=== PATIENT | female | born 1975 | race Caucasian/White ===

== ENCOUNTER 2017-01-05 05:47 | Outpatient (CLI) | payer SELFPAY ==
[~2017-01-05] VITALS: Ht 170.2 cm; Wt 83.9 kg
[2017-01-05] MEDS ORDERED: ESCI10TA PO ×2 (13:34)
[2017-01-05] MEDS ORDERED: CETI10TA17 PO ×2 (13:34)
[2017-01-05] MEDS ORDERED: BUDE8.43 NS ×2 (13:34)
[2017-01-05] MEDS ORDERED: BUDE10.22 IH ×2 (13:34)
[2017-01-05] MEDS ORDERED: DICL50TA6 PO ×2 (13:34)
[2017-01-05] MEDS ORDERED: CLON0.2T PO ×2 (13:34)
[2017-01-05] MEDS ORDERED: RANI-515 PO ×2 (13:34)
== END 2017-01-05 13:39 ==
LOC: PREOP 05:47
PROVIDERS: ATTEND Surgery
DX: Z01.818 Encounter for other preprocedural examination (principal); R19.5 Other fecal abnormalities; K21.9 Gastro-esophageal reflux disease without esophagitis; R11.2 Nausea with vomiting, unspecified

== ENCOUNTER 2017-01-09 09:26 | Day surgery (SDC) | payer OTHER ==
[~2017-01-09] VITALS: Ht 170.2 cm; Wt 83.9 kg
[~2017-01-09 09:26] MED LIST: BUDE10.22 IH; BUDE8.43 NS; CETI10TA17 PO; CLON0.2T PO; DICL50TA6 PO; ESCI10TA PO; RANI-515 PO
[2017-01-09] MEDS ORDERED: LACTATED RINGERS 1,000 ML IV STA (09:37)
[2017-01-09] MEDS ORDERED: LACTATED RINGERS 1,000 ML IV ONE (09:39)
[2017-01-09 09:40] VITALS: BP 120/82
[2017-01-09] MEDS ORDERED: MIDAZOLAM 2 MG/2 ML (VERSED) VIAL ONE (10:11)
[2017-01-09] MEDS ORDERED: proPOfol 200 MG/20 ML (DIPRIVAN) VIAL IV ONE (10:11)
--- NOTE | 2017-01-09 13:05 | Progress Note-Pre Operative ---
Pre-Operative Progress Note H&P Reviewed The H&P was reviewed, patient examined and no changes noted. Date Seen by Provider: Jan 09, 2017 Time Seen by Provider: 13:05 Date H&P Reviewed: Jan 09, 2017 Time H&P Reviewed: 13:05 Pre-Operative Diagnosis: n/v gerd, change in bowel habits LON GARCIA DO Jan 09, 2017 1:05 pm
[2017-01-09] MEDS ORDERED: HURRICAINE EXT TUBE (BENZOCAINE) ONE (13:08)
[2017-01-09] MEDS ORDERED: HURRICAINE EXT TUBE (BENZOCAINE) XX ONE (13:30)
[2017-01-09] MEDS ORDERED: PANT40TA2 PO ×2 (13:36)
--- NOTE | 2017-01-09 13:38 | Discharge Inst-Simple/Standard ---
Discharge Inst-Standard Discharge Medications New, Converted or Re-Newed RX: RX on Chart Patient Instructions/Follow Up Plan of Care/Instructions/FU: Follow up with Dr. Hubbard in 3 weeks take medication as directed. Activity as Tolerated: Yes Discharge Diet: No Restrictions GALILEO CARMONA APRN Jan 09, 2017 13:38
--- NOTE | 2017-01-09 13:46 | Progress Note-Post Operative ---
Post-Operative Progess Note Surgeon (s)/Hardwood Floor Sander (s) Surgeon LON GARCIA DO Hardwood Floor Sander: na Pre-Operative Diagnosis n/v gerd, change in bowel habits Post-Operative Diagnosis duodenitis, gastritis, recurrent hiatal hernia Procedure & Operative Findings Date of Procedure 01/09/17 Procedure Performed/Findings egd c biopsy, colonoscopy Anesthesia Type per airplane designer Estimated Blood Loss Estimated blood loss (mL): none Specimens/Packing Specimens Removed antrum LON GARCIA DO Jan 09, 2017 1:45 pm
[2017-01-09 13:55] VITALS: BP 106/69
[2017-01-09 14:15] VITALS: BP 119/85
--- NOTE | 2017-01-10 03:31 | OPERATIVE REPORT ---
DATE OF SERVICE: PREOPERATIVE DIAGNOSES: Nausea, vomiting, GERD, change in bowel habits. POSTOPERATIVE DIAGNOSES: Duodenitis, gastritis, recurrent hiatal hernia. PROCEDURE: EGD with biopsy and colonoscopy. SURGEON: Lon Hubbard DO ANESTHESIA: Per ANTITANK ASSAULT GUNNER. ESTIMATED BLOOD LOSS: None. COMPLICATIONS: None. SPECIMENS: Antrum. INDICATIONS: The patient is a 41-year-old female who has been having nausea, vomiting and worsening reflux symptoms. She has also had change in bowels and was recommended to have EGD and colonoscopy. She understands risks and benefits of procedure and wishes to proceed with procedure. Consent was signed and in the chart. PROCEDURE: The patient was taken to the endoscopy suite, placed in left lateral recumbent position. Timeout was performed. Scope was inserted in mouth, down the esophagus, stomach and into the duodenum without difficulty. There were some erythematous changes within the duodenum consistent with duodenitis. The scope was slowly retracted back into the stomach, which was further insufflated noting some erythematous changes. Biopsy of the antrum was obtained. There were no polyps, masses or ulcerations. The scope was then retroflexed, noting the appearance with either loosening of the wrap or a one side of the wrap causing allowing recurrence of the hiatal hernia. There were no polyps, masses or ulcerations. Scope was returned to its normal position and slowly withdrawn back into the distal esophagus, which had no erythematous changes. No polyps, masses or ulcerations at the GE junction. Scope was then slowly retracted back and there was a very tiny normal appearing polyp within the esophagus more proximally. Scope was then continuously retracted back noting no other pathology. Digital rectal exam was performed. There were no palpable polyps, masses or ulcerations. Scope was inserted in the rectum and advanced all the way to the cecum with minimal difficulty. Prep was adequate. Scope was then slowly retracted. There were no polyps, mass or ulcerations in the cecum, ascending, transverse, descending and sigmoid colon. The scope was continued to retract back in the rectum where it was also retroflexed noting no other pathology. Scope was returned to its normal position, slowly withdrawn until completely removed. The patient tolerated procedure well without any complications. She was taken to the recovery room in stable condition. RECOMMENDATIONS: The patient remained tubing will be switched to Protonix 40 mg daily. We will see how she does in approximately 3 weeks. The patient will need repeat colonoscopy in 10 years unless family history of colon cancer which would then be 5 years. If she has any problems prior to that, she should be reevaluated at that time. Job ID: [id number] DocumentID: [id number] Dictated Date: 01/09/2017 13:49:42 Adobe Developer Date: 01/10/2017 02:59:01 Dictated By: LON HUBBARD DO
--- OUTSIDE RECORDS SUMMARY | 2017-01-11 14:34 | XMS REPORT ---
Author Author BILLY KEITH [facility] eClinicalWorks Address Unknown Phone Unavailable Care Team Providers Care Warehouse Logistics Coordinator Name Role Phone BILLY KEITH CP Unavailable Allergies, Adverse Reactions, Alerts Substance Reaction Event Type N.K.D.A. Info Not Available Non Drug Allergy Problems Problem Type Condition Code Onset Dates Condition Status Assessment Acute right-sided low back pain without sciatica M54.5 Active Assessment Anxiety, generalized F41.1 Active Assessment Mild episode of recurrent major depressive disorder F33.0 Active Problem Mild episode of recurrent major depressive disorder F33.0 Active Problem Eczema, unspecified type L30.9 Active Problem Anxiety, generalized F41.1 Active Problem Chronic airway obstruction, not elsewhere classified 496 Active Assessment Eczema, unspecified type L30.9 Active Problem Family history of diabetes mellitus V18.0 Active Problem Personal history of tobacco use, presenting hazards to health V15.82 Active Medications Medication Code System Code Instructions Start Date End Date Status Dosage Cetirizine HCl [facility] 88643431046 10 MG TAKE ONE TABLET BY MOUTH ONCE DAILY Zyrtec Allergy [facility] [address]-46 10 MG Orally Once a day 1 tablet as needed Methotrexate Sodium NDC 0 2.5 MG Orally once weekly Apr 18, 2016 1 tablet Clonidine HCl [facility] [address]-35 0.2 MG Orally twice a day Apr 12, 2016 1 tablet Ibuprofen [facility] [address]-03 800 MG Orally Three times a day May 29, 2016 Jun 18, 2016 1 tablet Lexapro [facility] [address]-47 10 mg Orally Once a day May 29, 2016 1 tablet Symbicort [facility] [address]-87 80-4.5 mcg/actuation May 19, 2014 2 puffs by Inhalation route 2 times per day Ranitidine & Diet Manage Prod NDC 0 150 MG Orally once a day 1 tablet Tylenol Cold [facility] [address]-94 30-2-15-325 MG Orally every 6 hrs 2 tablets as needed Procedures Procedure Coding System Code Date X-RAY EXAM OF LOWER SPINE CPT-4 93281 May 29, 2016 Office Visit, Est Pt., Level 3 CPT-4 76670 May 29, 2016 X-RAY EXAM HIP UNI 2-3 VIEWS CPT-4 25576 May 29, 2016 Vital Signs Date/Time: May 29, 2016 Cardiac Monitoring Heart Rate 74 bpm Weight 184.1 lbs Height 66 in BMI 29.71 Index Blood Pressure Diastolic 72 mmHg Blood Pressure Systolic 108 mmHg Results Name Result Date Reference Range Unit Abnormality Flag Xray : Spine, Lumbar 2-3 views (IN HOUSE) Xray : Hip, Right 2 views (IN HOUSE) Summary Purpose eClinicalWorks Submission
--- OUTSIDE RECORDS SUMMARY | 2017-01-11 14:34 | XMS REPORT ---
Author Author BILLY KEITH [facility] eClinicalWorks Address Unknown Phone Unavailable Care Team Providers Care House Principal Name Role Phone BILLY KEITH CP Unavailable Allergies No Known Allergies Problems Problem Type Condition Code Onset Dates Condition Status Problem Mild episode of recurrent major depressive disorder F33.0 Active Problem Eczema, unspecified type L30.9 Active Problem Anxiety, generalized F41.1 Active Problem Chronic airway obstruction, not elsewhere classified 496 Active Problem Family history of diabetes mellitus V18.0 Active Problem Personal history of tobacco use, presenting hazards to health V15.82 Active Medications No Known Medications Results No Known Results Summary Purpose eClinicalWorks Submission
--- OUTSIDE RECORDS SUMMARY | 2017-01-11 14:34 | XMS REPORT ---
Author Author BILLY KEITH Organization e[employer] Address Unknown Phone Unavailable Care Team Providers Care Lactation Specialist Name Role Phone BILLY KEITH CP Unavailable [...] Instructions Start Date End Date Status Dosage Methotrexate Sodium NDC 0 2.5 MG Orally once weekly Apr 18, 2016 1 tablet Results No Known Results Summary Purpose eClinicalWorks Submission
--- OUTSIDE RECORDS SUMMARY | 2017-01-11 14:34 | XMS REPORT ---
Author BILLY Raymond Organization e[employer] Address Unknown Phone Unavailable Care Team Providers Care Fan Balancer Name Role Phone BILLY KEITH CP Unavailable Allergies, Adverse Reactions, Alerts Substance Reaction Event Type N.K.D.A. Info Not Available Non Drug Allergy Problems Problem Type Condition Code Onset Dates Condition Status Problem Personal history of tobacco use, presenting hazards to health V15.82 Active Problem Chronic airway obstruction, not elsewhere classified 496 Active Problem Family history of diabetes mellitus V18.0 Active Assessment Depression, unspecified depression type F32.9 Active Assessment Eczema L30.9 Active Assessment Hidradenitis L73.2 Active Medications Medication Code System Code Instructions Start Date End Date Status Dosage Zyrtec Allergy [facility] [address]-44 10 MG Orally Once a day 1 tablet as needed Combivent Respimat [facility] [address]-74 20-100 MCG/ACT Inhalation Four times a day 1 puff Ranitidine & Diet Manage Prod NDC 0 150 MG Orally once a day 1 [place] [address]-60 50 mcg/actuation October 16, 2014 inhale 1 spray in each nostril by INTRANASAL route 2 times per day Symbicort [facility] [address]-20 80-4.5 mcg/actuation May 19, 2014 2 puffs by Inhalation route 2 times per day Procedures Procedure Coding System Code Date Office Visit, Est Pt., Level 3 CPT-4 42125 Apr 11, 2016 Vital Signs Date/Time: Apr 11, 2016 Cardiac Monitoring Heart Rate 74 bpm Weight 184.2 lbs Height 66 in BMI 29.73 Index Blood Pressure Diastolic 82 mmHg Blood Pressure Systolic 122 mmHg Results No Known Results Summary Purpose eClinicalWorks Submission
--- OUTSIDE RECORDS SUMMARY | 2017-01-11 14:35 | XMS REPORT ---
Author Author LENY ASENCIO [facility] Address [address] [place] [address] Care Team Providers Care Cutting Pressman Name Role Phone LENY ASENCIO Unavailable PROBLEMS Type Condition ICD9-CM Code [id number] Code Onset Dates Condition Status SNOMED Code Problem Family history of diabetes mellitus V18.0 Active 659540016 Problem Personal history of tobacco use, presenting hazards to health V15.82 Active 7638994164038 Assessment Moderate single current episode of major depressive disorder F32.1 Mar, Active 72396780 Problem Chronic airway obstruction, not elsewhere classified 496 Active 54171764 Assessment Anxiety, generalized F41.1 Mar, Active 64250670 ALLERGIES Unknown Allergies SOCIAL HISTORY No smoking Hx information available PLAN OF CARE VITAL SIGNS MEDICATIONS Unknown Medications RESULTS No Results PROCEDURES Procedure Date Ordered Related Diagnosis Body Site Psych diagnostic evaluation, new patient Apr 12, 2016 IMMUNIZATIONS No Known Immunizations
--- OUTSIDE RECORDS SUMMARY | 2017-01-11 14:35 | XMS REPORT ---
Author Author LENY ASENCIO [facility] Address [address] [place] [address] Care Team Providers Care Collar Starcher Name Role Phone LENY ASENCIO Unavailable PROBLEMS Type Condition ICD9-CM Code NJN65-XV Code Onset Dates Condition Status SNOMED Code Problem Family history of diabetes mellitus V18.0 Active 557065277 Problem Personal history of tobacco use, presenting hazards to health V15.82 Active 3955104153210 Assessment Social phobia, generalized F40.11 Mar, Active 77547754 Assessment Recurrent major depressive disorder, in partial remission F33.41 Mar, Active 00320665 Problem Chronic airway obstruction, not elsewhere classified 496 Active 62598081 Assessment Generalized anxiety disorder F41.1 Mar, Active 67133075 ALLERGIES Unknown Allergies SOCIAL HISTORY No smoking Hx information available PLAN OF CARE VITAL SIGNS MEDICATIONS Unknown Medications RESULTS No Results PROCEDURES Procedure Date Ordered Related Diagnosis Body Site Psychotherapy, patient &/family, 30 minutes, established patient Apr 19, 2016 IMMUNIZATIONS No Known Immunizations
--- OUTSIDE RECORDS SUMMARY | 2017-01-11 14:35 | XMS REPORT ---
Author Author BILLY KEITH Organization [facility] Address [address] [place] [address] Care Team Providers Care Freight Clerk Name Role Phone BILLY KEITH Unavailable PROBLEMS Type Condition ICD9-CM Code [id number] Code Onset Dates Condition Status SNOMED Code Problem Eczema, unspecified type L30.9 Active 89544702 Problem Family history of diabetes mellitus V18.0 Active 085625326 Assessment Eczema, unspecified type L30.9 Mar, Active 66953162 Problem Personal history of tobacco use, presenting hazards to health V15.82 Active 7180772043720 Problem Chronic airway obstruction, not elsewhere classified 496 Active 05230979 ALLERGIES Unknown Allergies SOCIAL HISTORY No smoking Hx information available PLAN OF CARE VITAL SIGNS MEDICATIONS Medication Instructions Dosage Frequency Start Date End Date Duration Status Keflex 500 MG Orally 3 times a day 1 capsule 8h Mar, Apr, 10 day(s) Active Methotrexate Sodium 2.5 MG Orally once weekly 1 tablet Mar, 30 days Active Methotrexate Sodium 2.5 MG Orally 2 times a day 1 tablet 12h Mar, Apr, 03 days Active RESULTS No Results PROCEDURES No Known procedures IMMUNIZATIONS No Known Immunizations
--- OUTSIDE RECORDS SUMMARY | 2017-01-11 14:35 | XMS REPORT | Continuity of Care Document ---
Author Author [facility] Address Unknown Phone Unavailable Allergies Active Description Code Type Severity Reaction Onset Reported/Identified Relationship to Patient Clinical Status Yes No Known Allergies [id number] Drug Allergy Unknown N/A 12/15/2014 Yes tramadol [id number] Drug Allergy Unknown migraine 01/05/2017 Medications Problems Date Dx Coded Attending Type Code Diagnosis Diagnosed By 03/06/2008 MANNY MOSCOSO MD 296.90 MOOD DISORDER 03/06/2008 MANNY MOSCOSO MD 465.9 UPPER RESPIRATORY INFECTION 03/06/2008 MANNY MOSCOSO MD 477.9 RHINITIS ALLERGIC 03/06/2008 HART DO JAYCE K 296.90 MOOD DISORDER 03/06/2008 TANNER CAO JAYCE K 465.9 UPPER RESPIRATORY INFECTION 03/06/2008 HART DO JAYCE K 477.9 RHINITIS ALLERGIC 03/06/2008 SAGAR PR[employer]ODU[employer] ASSEMBLER, BILLY S 296.90 MOOD DISORDER 03/06/2008 SAGAR PR[employer] PRODU[employer] ASSEMBLER, BILLY S 465.9 UPPER RESPIRATORY INFECTION 03/06/2008 SAGAR PR[employer]ED PRODU[employer] ASSEMBLER, BILLY S 477.9 RHINITIS ALLERGIC 03/06/2008 SAGAR PRINTED PRODUCTS ASSEMBLER, BILLY S 296.90 MOOD DISORDER 03/06/2008 SAGAR PR[employer]ED PRODU[employer] ASSEMBLER, BILLY S 465.9 UPPER RESPIRATORY INFECTION 03/06/2008 SAGAR PRINTED PRODUCTS ASSEMBLER, BILLY S 477.9 RHINITIS ALLERGIC 03/06/2008 SAGAR PRINTED PRODUCTS ASSEMBLER, BILLY S 296.90 MOOD DISORDER 03/06/2008 SAGAR PRINTED PRODUCTS ASSEMBLER, BILLY S 465.9 UPPER RESPIRATORY INFECTION 03/06/2008 SAGAR PR[employer] PRODU[employer] ASSEMBLER, BILLY S 477.9 RHINITIS ALLERGIC 03/06/2008 HART DO JAYCE K 296.90 MOOD DISORDER 03/06/2008 HART DO JAYCE K 465.9 UPPER RESPIRATORY INFECTION 03/06/2008 HART DO JAYCE K 477.9 RHINITIS ALLERGIC 03/06/2008 SAGAR PR[employer]ODU[employer] ASSEMBLER, BILLY S 296.90 MOOD DISORDER 03/06/2008 SAGAR PR[employer]ED PRODU[employer] ASSEMBLER, BILLY S 465.9 UPPER RESPIRATORY INFECTION 03/06/2008 SAGAR YOUNGERN, BILLY S 477.9 RHINITIS ALLERGIC 03/06/2008 DHARA YOUNGERN, AMITA R 296.90 MOOD DISORDER 03/06/2008 DHARA YOUNGERN, AMITA R 465.9 UPPER RESPIRATORY INFECTION 03/06/2008 DHARA GUERRERO, AMITA R 477.9 RHINITIS ALLERGIC 03/06/2008 HERBERTH PEREIRA, ALI 296.90 MOOD DISORDER 03/06/2008 HERBERTH PEREIRA, ALI 465.9 UPPER RESPIRATORY INFECTION 03/06/2008 HERBERTH PEREIRA, ALI 477.9 RHINITIS ALLERGIC 03/10/2008 DANIS PEREIRA, MANNY M 595.0 CYSTITIS, ACUTE 03/10/2008 TANNER CAO JAYCE K 595.0 CYSTITIS, ACUTE 03/10/2008 SAGAR GUERRERO, BILLY S 595.0 CYSTITIS, ACUTE 03/10/2008 SAGAR GUERRERO, BILLY S 595.0 CYSTITIS, ACUTE 03/10/2008 SAGARSAMMY GUERRERO, BILLY S 595.0 CYSTITIS, ACUTE 03/10/2008 SARABJIT HART DOA K 595.0 CYSTITIS, ACUTE 03/10/2008 SAGAR GUERRERO, BILLY S 595.0 CYSTITIS, ACUTE 03/10/2008 SCARLETT JULES APRNRICIA R 595.0 CYSTITIS, ACUTE 03/10/2008 HERBERTH PEREIRA, ALI 595.0 CYSTITIS, ACUTE 04/06/2008 DANIS PEREIRA, MANNY Jackman V58.69 MEDICATION HIGH RISK 04/06/2008 TANNER CAO JAYCE K V58.69 MEDICATION HIGH RISK 04/06/2008 SAGAR GUERRERO BILLY S V58.69 MEDICATION HIGH RISK 04/06/2008 SAGAR GUERRERO BILLY S V58.69 MEDICATION HIGH RISK 04/06/2008 SAGAR GUERRERO BILLY S V58.69 MEDICATION HIGH RISK 04/06/2008 TANNER CAO JAYCE K V58.69 MEDICATION HIGH RISK 04/06/2008 SAGAR GUERRERO BILLY S V58.69 MEDICATION HIGH RISK 04/06/2008 SCARLETT JULES APRNRICIA R V58.69 MEDICATION HIGH RISK 04/06/2008 HERBERTH PEREIRA, ALI V58.69 MEDICATION HIGH RISK 04/07/2008 DANIS PEREIRA, MANNY Jackman 704.8 OTHER SPECIFIED DISEASES OF HAIR AND HAIR FOLLICLES 04/07/2008 DANIS PEREIRA, MANNY Jackman 709.9 DERMATITIS OTHER SKIN DISORDERS 04/07/2008 DANIS PEREIRA, MANNY Jackman 788.30 INCONTINENCE ENURESOS/URINARY 04/07/2008 SARABJIT HART DOA K 704.8 OTHER SPECIFIED DISEASES OF HAIR AND HAIR FOLLICLES 04/07/2008 SARABJIT HART DOA K 709.9 DERMATITIS OTHER SKIN DISORDERS 04/07/2008 SARABJIT HART DOA K 788.30 INCONTINENCE ENURESOS/URINARY 04/07/2008 BILLY KEITH APRN S 704.8 OTHER SPECIFIED DISEASES OF HAIR AND HAIR FOLLICLES 04/07/2008 LYDIA KEITH APRNA S 709.9 DERMATITIS OTHER SKIN DISORDERS 04/07/2008 LYDIA KEITH APRNA S 788.30 INCONTINENCE ENURESOS/URINARY 04/07/2008 ROX KEITH APRNNDA S 704.8 OTHER SPECIFIED DISEASES OF HAIR AND HAIR FOLLICLES 04/07/2008 ROX KEITH APRNNDA S 709.9 DERMATITIS OTHER SKIN DISORDERS 04/07/2008 ROX KEITH APRNNDA S 788.30 INCONTINENCE ENURESOS/URINARY 04/07/2008 ROX KEITH APRNNDA S 704.8 OTHER SPECIFIED DISEASES OF HAIR AND HAIR FOLLICLES 04/07/2008 LYDIA KEITH APRNA S 709.9 DERMATITIS OTHER SKIN DISORDERS 04/07/2008 ROX KEITH APRNNDA S 788.30 INCONTINENCE ENURESOS/URINARY 04/07/2008 SARABJIT HART DOA K 704.8 OTHER SPECIFIED DISEASES OF HAIR AND HAIR FOLLICLES 04/07/2008 SARABJIT HART DOA K 709.9 DERMATITIS OTHER SKIN DISORDERS 04/07/2008 SARABJIT HART DOA K 788.30 INCONTINENCE ENURESOS/URINARY 04/07/2008 ROX KEITH APRNNDA S 704.8 OTHER SPECIFIED DISEASES OF HAIR AND HAIR FOLLICLES 04/07/2008 LYDIA KEITH APRNA S 709.9 DERMATITIS OTHER SKIN DISORDERS 04/07/2008 SAGAR PR[employer] ASSEMBLER, BILLY S 788.30 INCONTINENCE ENURESOS/URINARY 04/07/2008 SURY JULES APRNIA R 704.8 OTHER SPECIFIED DISEASES OF HAIR AND HAIR FOLLICLES 04/07/2008 AMITA JULES APRN R 709.9 DERMATITIS OTHER SKIN DISORDERS 04/07/2008 SURY JULES APRNIA R 788.30 INCONTINENCE ENURESOS/URINARY 04/07/2008 RADHA KEVIN MD 704.8 OTHER SPECIFIED DISEASES OF HAIR AND HAIR FOLLICLES 04/07/2008 RADHA KEVIN MD 709.9 DERMATITIS OTHER SKIN DISORDERS 04/07/2008 RADHA KEVIN MD 788.30 INCONTINENCE ENURESOS/URINARY 08/05/2008 MANNY MOSCOSO MD 704.9 UNSPECIFIED DISEASE OF HAIR AND HAIR FOLLICLES 08/05/2008 MANNY MOSCOSO MD V25.41 SURVEILLANCE OF CONTRACEPTIVE PILL 08/05/2008 JAYCE HART DO K 704.9 UNSPECIFIED DISEASE OF HAIR AND HAIR FOLLICLES 08/05/2008 JAYCE HART DO K V25.41 SURVEILLANCE OF CONTRACEPTIVE PILL 08/05/2008 LYDIA KEITH APRNA S 704.9 UNSPECIFIED DISEASE OF HAIR AND HAIR FOLLICLES 08/05/2008 ROX KEITH APRNNDA S V25.41 SURVEILLANCE OF CONTRACEPTIVE PILL 08/05/2008 LYDIA KEITH APRNA S 704.9 UNSPECIFIED DISEASE OF HAIR AND HAIR FOLLICLES 08/05/2008 ROX KEITH APRNNDA S V25.41 SURVEILLANCE OF CONTRACEPTIVE PILL 08/05/2008 LYDIA KEITH APRNA S 704.9 UNSPECIFIED DISEASE OF HAIR AND HAIR FOLLICLES 08/05/2008 ROX KEITH APRNNDA S V25.41 SURVEILLANCE OF CONTRACEPTIVE PILL 08/05/2008 SARABJIT HART DOA K 704.9 UNSPECIFIED DISEASE OF HAIR AND HAIR FOLLICLES 08/05/2008 JAYCE HART DO K V25.41 SURVEILLANCE OF CONTRACEPTIVE PILL 08/05/2008 LYDIA KEITH APRNA S 704.9 UNSPECIFIED DISEASE OF HAIR AND HAIR FOLLICLES 08/05/2008 ROX KEITH APRNNDA S V25.41 SURVEILLANCE OF CONTRACEPTIVE PILL 08/05/2008 AMITA JULES APRN R 704.9 UNSPECIFIED DISEASE OF HAIR AND HAIR FOLLICLES 08/05/2008 DHARA YOUNGERN, AMITA R V25.41 SURVEILLANCE OF CONTRACEPTIVE PILL 08/05/2008 HERBERTH PEREIRA, RADHA 704.9 UNSPECIFIED DISEASE OF HAIR AND HAIR FOLLICLES 08/05/2008 HERBERTH PEREIRA, RADHA V25.41 SURVEILLANCE OF CONTRACEPTIVE PILL 09/16/2008 MANNY MOSCOSO MD 465.8 UPPER RESPIRATORY INFECTION MULTIPLE 09/16/2008 MANNY MOSCOSO MD M 724.3 SCIATICA 09/16/2008 MANNY MOSCOSO MD 786.2 cough 09/16/2008 HART DO, JAYCE K 465.8 UPPER RESPIRATORY INFECTION MULTIPLE 09/16/2008 HART DO, JAYCE K 724.3 SCIATICA 09/16/2008 HART DO, JAYCE K 786.2 cough 09/16/2008 SAGAR [employer] ASSEMBLER, BILLY S 465.8 UPPER RESPIRATORY INFECTION MULTIPLE 09/16/2008 SAGAR PR[employer] ASSEMBLER, BILLY S 724.3 SCIATICA 09/16/2008 SAGAR PR[employer]ED PR[employer]CTS ASSEMBLER, BILLY S 786.2 COUGH 09/16/2008 SAGAR PRINTED PRODUCTS ASSEMBLER, BILLY S 465.8 UPPER RESPIRATORY INFECTION MULTIPLE 09/16/2008 SAGAR PRINTED PRODUCTS ASSEMBLER, BILLY S 724.3 SCIATICA 09/16/2008 SAGAR PRINTED PRODUCTS ASSEMBLER, BILLY S 786.2 COUGH 09/16/2008 SAGAR PR[employer]ED PRODU[employer] ASSEMBLER, BILLY S 465.8 UPPER RESPIRATORY INFECTION MULTIPLE 09/16/2008 SAGAR PR[employer] PRODU[employer] ASSEMBLER, BILLY S 724.3 SCIATICA 09/16/2008 SAGAR PRINTED PRODUCTS ASSEMBLER, BILLY S 786.2 COUGH 09/16/2008 HART DO, JAYCE K 465.8 UPPER RESPIRATORY INFECTION MULTIPLE 09/16/2008 HART DO, JAYCE K 724.3 SCIATICA 09/16/2008 HART DO, JAYCE K 786.2 COUGH 09/16/2008 SAGAR PR[employer] ASSEMBLER, BILLY S 465.8 UPPER RESPIRATORY INFECTION MULTIPLE 09/16/2008 SAGAR PR[employer]ED PRODUCTS ASSEMBLER, BILLY S 724.3 SCIATICA 09/16/2008 SAGAR PR[employer]ED PRODUCTS ASSEMBLER, BILLY S 786.2 COUGH 09/16/2008 DHARA PRINTED PR[employer] ASSEMBLER, AMITA R 465.8 UPPER RESPIRATORY INFECTION MULTIPLE 09/16/2008 DHARA PRINTED [employer]ODUCTS ASSEMBLER AMITA R 724.3 SCIATICA 09/16/2008 SURY JULES APRNIA R 786.2 COUGH 09/16/2008 HERBERTH PEREIRA, RADHA 465.8 UPPER RESPIRATORY INFECTION MULTIPLE 09/16/2008 HERBERTH PEREIRA, ALI 724.3 SCIATICA 09/16/2008 HERBERTH PEREIRA, RADHA 786.2 COUGH 10/14/2009 DANIS PEREIRA, MANNY M 305.1 NONDEPENDENT ABUSE OF DRUGS, TOBACCO USE DISORDER 10/14/2009 SARABJIT HART DOA K 305.1 NONDEPENDENT ABUSE OF DRUGS, TOBACCO USE DISORDER 10/14/2009 SAGAR GUERRERO BILLY S 305.1 NONDEPENDENT ABUSE OF DRUGS, TOBACCO USE DISORDER 10/14/2009 SAGAR GUERRERO BILLY S 305.1 NONDEPENDENT ABUSE OF DRUGS, TOBACCO USE DISORDER 10/14/2009 SAGAR GUERRERO BILLY S 305.1 NONDEPENDENT ABUSE OF DRUGS, TOBACCO USE DISORDER 10/14/2009 SARABJIT HART DOA K 305.1 NONDEPENDENT ABUSE OF DRUGS, TOBACCO USE DISORDER 10/14/2009 ROX KEITH APRNNDA S 305.1 NONDEPENDENT ABUSE OF DRUGS, TOBACCO USE DISORDER 10/14/2009 AMITA JULES APRN R 305.1 NONDEPENDENT ABUSE OF DRUGS, TOBACCO USE DISORDER 10/14/2009 HERBERTH PEREIRA, ALI 305.1 NONDEPENDENT ABUSE OF DRUGS, TOBACCO USE DISORDER 10/28/2010 MANNY MOSCOSO MD 477.0 ALLERGIC RHINITIS DUE TO POLLEN 10/28/2010 MANNY MOSCOSO MD 789.00 ABDOMINAL PAIN UNSPECIFIED SITE 10/28/2010 JAYCE HART DO K 477.0 ALLERGIC RHINITIS DUE TO POLLEN 10/28/2010 SARABJIT AHRT DOA K 789.00 ABDOMINAL PAIN UNSPECIFIED SITE 10/28/2010 SAGAR GUERRERO BILLY S 477.0 ALLERGIC RHINITIS DUE TO POLLEN 10/28/2010 SAGAR GUERRERO BILLY S 789.00 ABDOMINAL PAIN UNSPECIFIED SITE 10/28/2010 SAGAR GUERRERO BILLY S 477.0 ALLERGIC RHINITIS DUE TO POLLEN 10/28/2010 ROX KEITH APRNNDA S 789.00 ABDOMINAL PAIN UNSPECIFIED SITE 10/28/2010 ROX KEITH APRNNDA S 477.0 ALLERGIC RHINITIS DUE TO POLLEN 10/28/2010 SAGAR PR[employer]ODU[employer] ASSEMBLER, BILLY S 789.00 ABDOMINAL PAIN UNSPECIFIED SITE 10/28/2010 HART DO, JAYCE K 477.0 ALLERGIC RHINITIS DUE TO POLLEN 10/28/2010 HART DO, JAYCE K 789.00 ABDOMINAL PAIN UNSPECIFIED SITE 10/28/2010 SAGAR PR[employer] ASSEMBLER, BILLY S 477.0 ALLERGIC RHINITIS DUE TO POLLEN 10/28/2010 SAGAR PR[employer] PRODU[employer] ASSEMBLER, BILLY S 789.00 ABDOMINAL PAIN UNSPECIFIED SITE 10/28/2010 JULES PRINTED [employer]ODU[employer] ASSEMBLER, AMITA R 477.0 ALLERGIC RHINITIS DUE TO POLLEN 10/28/2010 JULES PRINTED [employer]ODUCTS ASSEMBLER, AMITA R 789.00 ABDOMINAL PAIN UNSPECIFIED SITE 10/28/2010 RADHA KEVIN MD 477.0 ALLERGIC RHINITIS DUE TO POLLEN 10/28/2010 HERBERTH PEREIRA, RADHA 789.00 ABDOMINAL PAIN UNSPECIFIED SITE 01/03/2011 MANNY MOSCOSO MD 627.9 MENOPAUSAL AND POSTMENOPAUSAL DISORDER UNSPECIFIED 01/03/2011 MANNY MOSCOSO MD 784.0 HEADACHE 01/03/2011 MANNY MOSCOSO MD 992.5 HEAT EXHAUSTION UNSPECIFIED 01/03/2011 HART DO, JAYCE K 627.9 MENOPAUSAL AND POSTMENOPAUSAL DISORDER UNSPECIFIED 01/03/2011 HART DO, JAYCE K 784.0 HEADACHE 01/03/2011 HART DO, JAYCE K 992.5 HEAT EXHAUSTION UNSPECIFIED 01/03/2011 SAGAR PR[employer] ASSEMBLER, BILLY S 627.9 MENOPAUSAL AND POSTMENOPAUSAL DISORDER UNSPECIFIED 01/03/2011 SAGAR PRINT[employer]ODUCTS ASSEMBLER, BILLY S 784.0 HEADACHE 01/03/2011 SAGAR PRINTED [employer]ODUCTS ASSEMBLER, BILLY S 992.5 HEAT EXHAUSTION UNSPECIFIED 01/03/2011 SAGAR PR[employer] ASSEMBLER, BILLY S 627.9 MENOPAUSAL AND POSTMENOPAUSAL DISORDER UNSPECIFIED 01/03/2011 SAGAR PR[employer]ED PRODUCTS ASSEMBLER, BILLY S 784.0 HEADACHE 01/03/2011 SAGAR PR[employer]ED PRODUCTS ASSEMBLER, BILLY S 992.5 HEAT EXHAUSTION UNSPECIFIED 01/03/2011 SAGAR PR[employer] PRODUCTS ASSEMBLER, BILLY S 627.9 MENOPAUSAL AND POSTMENOPAUSAL DISORDER UNSPECIFIED 01/03/2011 SAGAR PRINTED PRODUCTS ASSEMBLER, BILLY S 784.0 HEADACHE 01/03/2011 SAGAR PRINTED PRODUCTS ASSEMBLER, BILLY S 992.5 HEAT EXHAUSTION UNSPECIFIED 01/03/2011 HART DO, JAYCE K 627.9 MENOPAUSAL AND POSTMENOPAUSAL DISORDER UNSPECIFIED 01/03/2011 HART DO, JAYCE K 784.0 HEADACHE 01/03/2011 HART DO, JAYCE K 992.5 HEAT EXHAUSTION UNSPECIFIED 01/03/2011 SAGAR PR[employer]ODUCTS ASSEMBLER, BILLY S 627.9 MENOPAUSAL AND POSTMENOPAUSAL DISORDER UNSPECIFIED 01/03/2011 SAGAR PRINTED PRODUCTS ASSEMBLER, BILLY S 784.0 HEADACHE 01/03/2011 SAGAR PRINTED PRODUCTS ASSEMBLER, BILLY S 992.5 HEAT EXHAUSTION UNSPECIFIED 01/03/2011 JULES PRINTED PRODUCTS ASSEMBLER AMITA R 627.9 MENOPAUSAL AND POSTMENOPAUSAL DISORDER UNSPECIFIED 01/03/2011 DHARA PRINTED PRODUCTS ASSEMBLER, AMITA R 784.0 HEADACHE 01/03/2011 JULES PRINTED PRODUCTS ASSEMBLER, AMITA R 992.5 HEAT EXHAUSTION UNSPECIFIED 01/03/2011 HERBERTH PEREIRA, ALI 627.9 MENOPAUSAL AND POSTMENOPAUSAL DISORDER UNSPECIFIED 01/03/2011 HERBERTH PEREIRA, ALI 784.0 HEADACHE 01/03/2011 HERBERTH PEREIRA, ALI 992.5 HEAT EXHAUSTION UNSPECIFIED 05/07/2012 MANNY MOSCOSO MD 682.9 CELLULITIS AND ABSCESS OF UNSPECIFIED SITES 05/07/2012 TANNER CAO JAYCE K 682.9 CELLULITIS AND ABSCESS OF UNSPECIFIED SITES 05/07/2012 SAGAR PR[employer] ASSEMBLER, BILLY S 682.9 CELLULITIS AND ABSCESS OF UNSPECIFIED SITES 05/07/2012 SAGAR PR[employer]ED PRODUCTS ASSEMBLER, BILLY S 682.9 CELLULITIS AND ABSCESS OF UNSPECIFIED SITES 05/07/2012 SAGAR PRINTED PRODUCTS ASSEMBLER, BILLY S 682.9 CELLULITIS AND ABSCESS OF UNSPECIFIED SITES 05/07/2012 TANNER CAO JAYCE K 682.9 CELLULITIS AND ABSCESS OF UNSPECIFIED SITES 05/07/2012 SAGAR PR[employer]CTS ASSEMBLER, BILLY S 682.9 CELLULITIS AND ABSCESS OF UNSPECIFIED SITES 05/07/2012 DHARA GUERRERO AMITA R 682.9 CELLULITIS AND ABSCESS OF UNSPECIFIED SITES 05/07/2012 HERBERTH PEREIRA, ALI 682.9 CELLULITIS AND ABSCESS OF UNSPECIFIED SITES 02/12/2013 DANIS PEREIRA, MANNY Jackman 691.8 ECZEMA 02/12/2013 DANIS PEREIRA, MANNY Jackman 705.83 HIDRADENITIS 02/12/2013 HART DO, JAYCE K 691.8 ECZEMA 02/12/2013 HART DO, JAYCE K 705.83 HIDRADENITIS 02/12/2013 SAGAR PR[employer] PRODUCTS ASSEMBLER, BILLY S 691.8 ECZEMA 02/12/2013 SAGAR PR[employer]ED PRODUCTS ASSEMBLER, BILLY S 705.83 HIDRADENITIS 02/12/2013 SAGAR PR[employer] PRODUCTS ASSEMBLER, BILLY S 691.8 ECZEMA 02/12/2013 SAGAR PRINTED PRODUCTS ASSEMBLER, BILLY S 705.83 HIDRADENITIS 02/12/2013 SAGAR PR[employer]ED PRODUCTS ASSEMBLER, BILLY S 691.8 ECZEMA 02/12/2013 SAGAR PR[employer]ED PRODUCTS ASSEMBLER, BILLY S 705.83 HIDRADENITIS 02/12/2013 HART DO JAYCE K 691.8 ECZEMA 02/12/2013 HART DO JAYCE K 705.83 HIDRADENITIS 02/12/2013 SAGAR PRINT[employer]ODUCTS ASSEMBLER, BILLY S 691.8 ECZEMA 02/12/2013 SAGAR PR[employer]CTS ASSEMBLER, BILLY S 705.83 HIDRADENITIS 02/12/2013 JULES PRINTED [employer]ODUCTS ASSEMBLER, AMITA R 691.8 ECZEMA 02/12/2013 JULES YOLANDA, AMITA R 705.83 HIDRADENITIS 02/12/2013 HERBERTH PEREIRA, ALI 691.8 ECZEMA 02/12/2013 HERBERTH PEREIRA, ALI 705.83 HIDRADENITIS 06/04/2013 MANNY MOSCOSO MD 462 ACUTE PHARYNGITIS 06/04/2013 MANNY MOSCOSO MD 784.2 lump in the throat 06/04/2013 HART DO JAYCE K 462 ACUTE PHARYNGITIS 06/04/2013 HART DO JAYCE K 784.2 lump in the throat 06/04/2013 SAGAR GUERRERO BILLY S 462 ACUTE PHARYNGITIS 06/04/2013 SAGAR GUERRERO BILLY S 784.2 lump in the throat 06/04/2013 SAGAR GUERRERO BILLY S 462 ACUTE PHARYNGITIS 06/04/2013 SAGAR PR[employer] ASSEMBLER, BILLY S 784.2 lump in the throat 06/04/2013 SAGAR PR[employer]ED PRODUCTS ASSEMBLER, BILLY S 462 ACUTE PHARYNGITIS 06/04/2013 SAGAR PR[employer] ASSEMBLER, BILLY S 784.2 lump in the throat 06/04/2013 HART DO, JAYCE K 462 ACUTE PHARYNGITIS 06/04/2013 HART DO, JAYCE K 784.2 lump in the throat 06/04/2013 SAGAR PR[employer] ASSEMBLER, BILLY S 462 ACUTE PHARYNGITIS 06/04/2013 SAGAR PR[employer]ODUCTS ASSEMBLER, BILLY S 784.2 lump in the throat 06/04/2013 JULES PRINT[employer]ODU[employer] ASSEMBLER, AMITA R 462 ACUTE PHARYNGITIS 06/04/2013 JULES PRINTED PRODUCTS ASSEMBLER, AMITA R 784.2 lump in the throat 06/04/2013 HERBERTH PEREIRA ALI 462 ACUTE PHARYNGITIS 06/04/2013 RADHA KEVIN MD 784.2 LUMP IN THE THROAT 06/11/2013 HART DO, JAYCE K 112.1 CANDIDIASIS OF VULVA AND VAGINA 06/11/2013 HART DO, JAYCE K 388.70 OTALGIA UNSPECIFIED 06/11/2013 SAGAR PR[employer] ASSEMBLER, BILLY S 112.1 CANDIDIASIS OF VULVA AND VAGINA 06/11/2013 SAGAR PRINTED PRODUCTS ASSEMBLER, BILLY S 388.70 OTALGIA UNSPECIFIED 06/11/2013 SAGAR PRINTED PRODUCTS ASSEMBLER, BILLY S 112.1 CANDIDIASIS OF VULVA AND VAGINA 06/11/2013 SAGAR PRINTED PRODUCTS ASSEMBLER, BILLY S 388.70 OTALGIA UNSPECIFIED 06/11/2013 SAGAR PRINTED PRODUCTS ASSEMBLER, BILLY S 112.1 CANDIDIASIS OF VULVA AND VAGINA 06/11/2013 SAGAR PRINTED PRODUCTS ASSEMBLER, BILLY S 388.70 OTALGIA UNSPECIFIED 06/11/2013 HART DO, JAYCE K 112.1 CANDIDIASIS OF VULVA AND VAGINA 06/11/2013 HART DO, JAYCE K 388.70 OTALGIA UNSPECIFIED 06/11/2013 SAGAR PR[employer] PRODUCTS ASSEMBLER, BILLY S 112.1 CANDIDIASIS OF VULVA AND VAGINA 06/11/2013 SAGAR PRINTED PRODUCTS ASSEMBLER, BILLY S 388.70 OTALGIA UNSPECIFIED 06/11/2013 SCARLETT JULES APRNRICIA R 112.1 CANDIDIASIS OF VULVA AND VAGINA 06/11/2013 DHARA GUERRERO, AMITA R 388.70 OTALGIA UNSPECIFIED 06/11/2013 HERBERTH PEREIRA, RADHA 112.1 CANDIDIASIS OF VULVA AND VAGINA 06/11/2013 HERBERTH PEREIRA, ALI 388.70 OTALGIA UNSPECIFIED 07/22/2013 SAGAR GUERRERO, BILLY S V70.0 EXAM - ROUTINE H&P 07/22/2013 SAGAR GUERRERO BILLY S V70.0 EXAM - ROUTINE H&P 07/22/2013 SAGAR GUERRERO, BILLY S V70.0 EXAM - ROUTINE H&P 07/22/2013 HART DO, JAYCE K V70.0 EXAM - ROUTINE H&P 07/22/2013 SAGAR GUERRERO BILLY S V70.0 EXAM - ROUTINE H&P 07/22/2013 SCARLETT JULES APRNRICIA R V70.0 EXAM - ROUTINE H&P 07/22/2013 HERBERTH PEREIRA, RADHA V70.0 EXAM - ROUTINE H&P 05/19/2014 HART DO, JAYCE K 466.0 BRONCHITIS, ACUTE 05/19/2014 HART DO, JAYCE K 496 COPD 05/19/2014 HART DO, JAYCE K 692.2 CONTACT DERMATITIS AND OTHER ECZEMA DUE TO SOLVENTS 05/19/2014 HART DO, JAYCE K V58.69 HIGH RISK MEDICATION 05/19/2014 SAGAR GUERRERO BILLY S 466.0 BRONCHITIS, ACUTE 05/19/2014 ROX KEITH APRNNDA S 496 COPD 05/19/2014 SAGAR GUERRERO BILLY S 692.2 CONTACT DERMATITIS AND OTHER ECZEMA DUE TO SOLVENTS 05/19/2014 ROX KEITH APRNNDA S V58.69 HIGH RISK MEDICATION 05/19/2014 DHARA GUERRERO AMITA R 466.0 BRONCHITIS, ACUTE 05/19/2014 SCARLETT JULES APRNRICIA R 496 COPD 05/19/2014 DHARA GUERRERO AMITA R 692.2 CONTACT DERMATITIS AND OTHER ECZEMA DUE TO SOLVENTS 05/19/2014 DHARA GUERRERO AMITA R V58.69 HIGH RISK MEDICATION 05/19/2014 RADHA KEVIN MD 466.0 BRONCHITIS, ACUTE 05/19/2014 RADHA KEVIN MD 496 COPD 05/19/2014 RADHA KEVIN MD 692.2 CONTACT DERMATITIS AND OTHER ECZEMA DUE TO SOLVENTS 05/19/2014 RADHA KEVIN MD V58.69 HIGH RISK MEDICATION 08/13/2014 BILLY KEITH APRN S 462 ACUTE PHARYNGITIS 08/13/2014 BILLY KEITH APRN S 719.43 PAIN IN JOINT INVOLVING FOREARM 08/13/2014 BILLY KEITH APRN S 782.0 DISTURBANCE OF SKIN SENSATION 08/13/2014 AMITA JULES APRN R 462 ACUTE PHARYNGITIS 08/13/2014 AMITA JULES APRN R 719.43 PAIN IN JOINT INVOLVING FOREARM 08/13/2014 AMITA JULES APRN R 782.0 DISTURBANCE OF SKIN SENSATION 08/13/2014 RADHA KEVIN MD 462 ACUTE PHARYNGITIS 08/13/2014 RADHA KEVIN MD 719.43 PAIN IN JOINT INVOLVING FOREARM 08/13/2014 RADHA KEVIN MD 782.0 DISTURBANCE OF SKIN SENSATION 09/03/2014 BILLY KEITH APRN S 780.8 GENERALIZED HYPERHIDROSIS 09/03/2014 BILLY KEITH APRN S V15.82 NICOTINE ABUSE 09/03/2014 BILLY KEITH APRN S V18.0 FAMILY HISTORY OF DIABETES MELLITUS 09/03/2014 AMITA JULES APRN R 780.8 GENERALIZED HYPERHIDROSIS 09/03/2014 AMITA JULES APRN R V15.82 NICOTINE ABUSE 09/03/2014 AMITA JULES APRN R V18.0 FAMILY HISTORY OF DIABETES MELLITUS 09/03/2014 RADHA KEVIN MD 780.8 GENERALIZED HYPERHIDROSIS 09/03/2014 RADHA KEVIN MD V15.82 NICOTINE ABUSE 09/03/2014 RADHA KEVIN MD V18.0 FAMILY HISTORY OF DIABETES MELLITUS 10/16/2014 AMITA JULES APRN R 786.2 COUGH 10/16/2014 RADHA KEVIN MD 786.2 COUGH 11/11/2014 RADHA KEVIN MD 786.09 DYSPNEA 11/11/2014 HERBERTH PEREIRA, RADHA 786.50 CHEST PAIN 12/16/2014 SUZANNE NAYLOR SEO MANAGER Ot 786.09 12/16/2014 BAIMA, SUZANNE L SEO MANAGER Ot 786.50 12/17/2014 BAIMA, SUZANNE L SEO MANAGER Ot 786.09 12/17/2014 BAIMA, SUZANNE L SEO MANAGER Ot 786.50 01/01/2015 BAIMA, SUZANNE L SEO MANAGER Ot 786.09 01/01/2015 BAIMA, SUZANNE L SEO MANAGER Ot 786.50 01/06/2015 HERBERTH PEREIRA [facility], ALI FACP CCDS Ot 786.09 01/06/2015 HERBERTH PEREIRA [facility], ALI FACP CCDS Ot 786.50 01/06/2015 BAIMA, SUZANNE L SEO MANAGER Ot 786.09 01/06/2015 BAIMA, SUZANNE L SEO MANAGER Ot 786.50 01/14/2015 HERBERTH PEREIRA [facility], ALI FACP CCDS Ot 786.09 01/14/2015 HERBERTH PEREIRA [facility], ALI FACP CCDS Ot 786.50 01/14/2015 BAIMA, SUZANNE L SEO MANAGER Ot 786.09 01/14/2015 BAIMA, SUZANNE L SEO MANAGER Ot 786.50 02/08/2015 BILLY KEITH SEO MANAGER Ot 784.2 02/08/2015 HERBERTH PEREIRA [facility], ALI FACP CCDS Ot 786.09 02/08/2015 HERBERTH PEREIRA [facility], ALI FACP CCDS Ot 786.50 02/08/2015 BAIMA, SUZANNE L SEO MANAGER Ot 786.09 02/08/2015 BAIMA, SUZANNE L SEO MANAGER Ot 786.50 02/08/2015 BILLY KEITH SEO MANAGER Ot 784.2 02/08/2015 HERBERTH PEREIRA [facility], ALI FACP CCDS Ot 786.09 02/08/2015 HERBERTH PEREIRA [facility], ALI FACP CCDS Ot 786.50 02/08/2015 BAIMA, SUZANNE L SEO MANAGER Ot 786.09 02/08/2015 BAIMA, SUZANNE L SEO MANAGER Ot 786.50 02/18/2015 HERBERTH PEREIRA [facility], ALI FACP CCDS Ot 786.09 02/18/2015 HERBERTH PEREIRA [facility], ALI FACP CCDS Ot 786.50 02/25/2015 BAIMA, SUZANNE L SEO MANAGER Ot 786.09 02/25/2015 BAIMA, SUZANNE L SEO MANAGER Ot 786.50 02/25/2015 BILLY KEITH SEO MANAGER Ot 784.2 02/25/2015 RADHA KEVIN MD, FACC, FACP CCDS Ot 786.09 02/25/2015 RADHA KEVIN MD, FACC FACP CCDS Ot 786.50 02/25/2015 BAIJAMIN SUZANNE L SEO MANAGER Ot 786.09 02/25/2015 BAIMA, SUZANNE L SEO MANAGER Ot 786.50 01/09/2017 BILLY KEITH SEO MANAGER Ot 784.2 SWELLING IN HEAD NECK 01/09/2017 RADHA KEVIN MD, FACC FACP CCDS Ot 786.09 RESPIRATORY ABNORM NEC 01/09/2017 RADHA KEVIN MD, FACCP CCDS Ot 786.50 CHEST PAIN NOS 01/09/2017 BAIMA, SUZANNE L SEO MANAGER Ot 786.09 RESPIRATORY ABNORM NEC 01/09/2017 BAIMA, SUZANNE L SEO MANAGER Ot 786.50 CHEST PAIN NOS 01/09/2017 BILLY KEITH SEO MANAGER Ot 784.2 SWELLING IN HEAD NECK 01/09/2017 RADHA KEVIN MD, FACCP CCDS Ot 786.09 RESPIRATORY ABNORM NEC 01/09/2017 RADHA KEVIN MD, FACC FACNataliya CCDS Ot 786.50 CHEST PAIN NOS 01/09/2017 BAIMA SUZANNE L SEO MANAGER Ot 786.09 RESPIRATORY ABNORM NEC 01/09/2017 BAIMA, SUZANNE L SEO MANAGER Ot 786.50 CHEST PAIN NOS Procedures Code Description Performed By Performed On OTYOBANI PonceJosé Manuel 06/16/[address] NECK, SOFT TISSUE NECK W/DYE 07/22/2013 44119 ROUTINE VENIPUNCTURE 09/16/2014 08801 CBC 09/16/2014 93693 CMP 09/16/2014 99327 LIPID PANEL 09/16 00868 MAGNESIUM 2014 2410164 GFR CALC (RESULT ONLY) 09/16/2014 28355 TSH 09/16/2014 30158 THERAPUTIC INJ SQ/IM 10/16/2014 J1040 DEPO MEDROL 80 MG INJ 10/16/2014 J1100 DEXAMETHASONE SODIUM PHOS, 1 MG 10/16/2014 Results Encounters ACCT No. Visit Date/Time Discharge Status Pt. Type Provider Facility Loc./Unit Complaint [id number] 11/11/2014 10:25:00 11/11/2014 23: 59:59 CLS Outpatient RADHA KEVIN MD [id number] 10/16/2014 11:58:00 10/16/2014 23: 59:59 CLS Outpatient AMITA JULES APRN [id number] 09/24/2014 15:53:00 09/24/2014 23: 59:59 CLS Outpatient SAGAR GUERRERO BILLY S [id number] 05/19/2014 18:27:00 05/19/2014 23: 59:59 CLS Outpatient JAYCE HART DO [id number] 09/30/2013 08:52:00 09/30/2013 23: 59:59 CLS Outpatient BILLY KEITH APRN [id number] 08/05/2013 10:07:00 08/05/2013 23: 59:59 CLS Outpatient BILLY KEITH APRN [id number] 07/22/2013 10:59:00 07/22/2013 23: 59:59 CLS Outpatient BILLY KEITH APRN [id number] 06/11/2013 11:50:00 06/11/2013 23: 59:59 CLS Outpatient JAYCE HART DO [id number] 06/04/2013 13:27:00 06/04/2013 23: 59:59 CLS Outpatient DANIS PEREIRA, MANNY Jackman
--- OUTSIDE RECORDS SUMMARY | 2017-01-11 14:35 | XMS REPORT ---
Author Author BILLY KEITH [facility] eClinicalWorks Address Unknown Phone Unavailable Care Team Providers Care Cross Tie Cutter Name Role Phone BILLY KEITH CP Unavailable [...] health V15.82 Active Medications No Known Medications Procedures Procedure Coding System Code Date COMPREHEN METABOLIC PANEL CPT-4 56645 Jun 07, 2016 VENIPUNCT, ROUTINE* CPT-4 05010 Jun 07, 2016 COMPLETE CBC W/AUTO DIFF WBC CPT-4 31299 Jun 07, 2016 Results Name Result Date Reference Range Unit Abnormality Flag CMP ----Calcium, Serum 9.8 03822420 8.7-10.2 mg/dL ----Carbon Dioxide, Total 28 20160607 18-29 mmol/L ----ALT (SGPT) 15 [id number] 0-32 IU/L ----Creatinine, Serum 0.78 60005735 0.57-1.00 mg/dL ----AST (SGOT) 15 66413679 0-40 IU/L ----eGFR If NonAfricn Am 94 [id number] >59 mL/min/1.73 ----Alkaline Phosphatase, S 68 31937677 39-117 IU/L ----eGFR If Africn Am 108 19625440 >59 mL/min/1.73 ----Bilirubin, Total 0.3 72901746 0.0-1.2 mg/dL ----BUN/Creatinine Ratio 12 20160607 9-23 ----A/G Ratio 1.6 17232718 1.1-2.5 ----Sodium, Serum 140 76514972 136-144 mmol/L ----Globulin, Total 2.9 97887688 1.5-4.5 g/dL ----Potassium, Serum 4.3 61602022 3.5-5.2 mmol/L ----Glucose, Serum 95 08270485 65-99 mg/dL ----Chloride, Serum 98 28882074 97-106 mmol/L ----Albumin, Serum 4.5 04662900 3.5-5.5 g/dL ----BUN 9 04875595 6-24 mg/dL ----Protein, Total, Serum 7.4 47282209 6.0-8.5 g/dL ROUTINE VENIPUNCTURE CBC ----MCHC 33.3 58397581 31.5-35.7 g/dL ----MCH 29.9 65138880 26.6-33.0 pg ----Platelets 214 [id number] 150-379 x10E3/uL ----RDW 13.9 39149230 12.3-15.4 % ----Immature Granulocytes 0 04111048 % ----Immature Grans (Abs) 0.0 43909507 0.0-0.1 x10E3/uL ----Lymphs 40 09775138 % ----Monocytes 6 28923516 % ----Neutrophils 50 28627371 % ----Neutrophils (Absolute) 3.9 65232730 1.4-7.0 x10E3/uL ----Hematocrit 44.1 45629442 34.0-46.6 % ----Lymphs (Absolute) 3.1 96607614 0.7-3.1 x10E3/uL ----MCV 90 91633720 79-97 fL ----RBC 4.91 32212494 3.77-5.28 x10E6/uL ----Eos 3 60444758 % ----Basos 1 94606318 % ----Hemoglobin 14.7 87658475 11.1-15.9 g/dL ----Baso (Absolute) 0.0 28669404 0.0-0.2 x10E3/uL ----WBC 7.7 96718302 3.4-10.8 x10E3/uL ----Monocytes(Absolute) 0.5 09761782 0.1-0.9 x10E3/uL ----Eos (Absolute) 0.2 20160607 0.0-0.4 x10E3/uL Summary Purpose eClinicalWorks Submission
--- OUTSIDE RECORDS SUMMARY | 2017-01-11 14:35 | XMS REPORT ---
Author BILLY Raymond [facility] eClinicalWorks Address Unknown Phone Unavailable Care Team Providers Care Special Education Paraeducator Name Role Phone BILLY KEITH CP Unavailable Allergies, Adverse Reactions, Alerts Substance Reaction Event Type N.K.D.A. Info Not Available Non Drug Allergy Problems Problem Type Condition Code Onset Dates Condition Status Problem Personal history of tobacco use, presenting hazards to health V15.82 Active Problem Chronic airway obstruction, not elsewhere classified 496 Active Problem Family history of diabetes mellitus V18.0 Active Assessment Hidradenitis L73.2 Active Assessment Eczema, unspecified eczema L30.9 Active Assessment Upper respiratory disease J39.9 Active Medications Medication Code System Code Instructions Start Date End Date Status Dosage Clobetasol Propionate [facility] [address]-93 0.05 % Externally Twice a day May 13, 2015 1 application to affected area Medrol (Hollis) [facility] [address]-30 4 MG Orally 6 tabs on day 1, 5 tabs day 2, 4 tabs day 3, 3 tabs day 4, 2 tabs day 5, 1 tab day 6 Jun 02, 2015 1 Ranitidine & Diet Manage Prod NDC 0 150 MG Orally once a day 1 tablet Zithromax Z-Hollis [facility] [address]-20 250 MG Orally Once a day Jun 02, 2015 Jun 07, 2015 2 tablets on the first day, then 1 tablet daily for 4 days Symbicort [facility] [address]-12 80-4.5 mcg/actuation May 19, 2014 2 puffs by Inhalation route 2 times per day fluticasone [facility] [address]-22 50 mcg/actuation October 16, 2014 inhale 1 spray in each nostril by INTRANASAL route 2 times per day Doxy-Caps [facility] [address]-18 100 MG Orally every 12 hrs Jun 02, 2015May 1 capsule Zyrtec Allergy [facility] [address]-73 10 MG Orally Once a day 1 tablet as needed Procedures Procedure Coding System Code Date Office Visit, Est Pt., Level 3 CPT-4 36923 Jun 02, 2015 Vital Signs Date/Time: Jun 02, 2015 Temperature 97.3 F Weight 181.6 lbs Height 66 in BMI 29.31 Index Blood Pressure Diastolic 80 mmHg Blood Pressure Systolic 110 mmHg Cardiac Monitoring Heart Rate 88 bpm Results No Known Results Summary Purpose eClinicalWorks Submission
--- OUTSIDE RECORDS SUMMARY | 2017-01-11 14:36 | XMS REPORT ---
Author Author LENY ASENCIO [facility] Address [address] [place] [address] Care Team Providers Care Photographic Artist Name Role Phone LENY ASENCIO Unavailable PROBLEMS Type Condition ICD9-CM Code QQC47-JI Code Onset Dates Condition Status SNOMED Code Problem Family history of diabetes mellitus V18.0 Active 601851682 Problem Personal history of tobacco use, presenting hazards to health V15.82 Active 7521283978492 Problem Chronic airway obstruction, not elsewhere classified 496 Active 51947943 Assessment Anxiety, generalized F41.1 Mar, Active 01171178 ALLERGIES Unknown Allergies SOCIAL HISTORY No smoking Hx information available PLAN OF CARE VITAL SIGNS MEDICATIONS Unknown Medications RESULTS No Results PROCEDURES Procedure Date Ordered Related Diagnosis Body Site Psychotherapy, patient &/family, 30 minutes, established patient Apr 12, 2016 IMMUNIZATIONS No Known Immunizations
--- OUTSIDE RECORDS SUMMARY | 2017-01-11 14:36 | XMS REPORT ---
Author Author LENY ASENCIO [facility] Address [address] [place] [address] Care Team Providers Care Client Retention Specialist Name Role Phone LENY ASENCIO Unavailable PROBLEMS Type Condition ICD9-CM Code [id number] Code Onset Dates Condition Status SNOMED Code Problem Family history of diabetes mellitus V18.0 Active 097444539 Problem Personal history of tobacco use, presenting hazards to health V15.82 Active 2813793457778 Assessment Generalized anxiety disorder F41.1 Mar, Active 63222890 Problem Chronic airway obstruction, not elsewhere classified 496 Active 01185323 Assessment Severe episode of recurrent major depressive disorder, without psychotic features F33.2 Mar, Active 94866527 ALLERGIES Unknown Allergies SOCIAL HISTORY No smoking Hx information available PLAN OF CARE VITAL SIGNS MEDICATIONS Unknown Medications RESULTS No Results PROCEDURES Procedure Date Ordered Related Diagnosis Body Site Psych diagnostic evaluation, new patient Apr 11, 2016 IMMUNIZATIONS No Known Immunizations
--- OUTSIDE RECORDS SUMMARY | 2017-01-11 14:36 | XMS REPORT ---
Author Author BILLY KEITH [facility] Address [address] [place] [address] Care Team Providers Care Airport Ramp Attendant Name Role Phone BILLY KEITH Unavailable PROBLEMS Type Condition ICD9-CM Code EJV95-VH Code Onset Dates Condition Status SNOMED Code Problem Anxiety, generalized F41.1 Active 95766636 Problem Mild episode of recurrent major depressive disorder F33.0 Active 902020597 Problem Personal history of tobacco use, presenting hazards to health V15.82 Active 8955259331491 Problem Chronic airway obstruction, not elsewhere classified 496 Active 52931893 Problem Eczema, unspecified type L30.9 Active 46683954 Problem Family history of diabetes mellitus V18.0 Active 451902136 ALLERGIES Unknown Allergies SOCIAL HISTORY No smoking Hx information available PLAN OF CARE VITAL SIGNS MEDICATIONS Medication Instructions Dosage Frequency Start Date End Date Duration Status Clonidine HCl 0.2 MG Orally twice a day 1 tablet 12h 21 Mar, 2016 14 days Active RESULTS No Results PROCEDURES No Known procedures IMMUNIZATIONS No Known Immunizations
--- OUTSIDE RECORDS SUMMARY | 2017-01-11 14:36 | XMS REPORT ---
Author ARLENE Loza [facility] eClinicalWorks Address Unknown Phone Unavailable Care Team Providers Care Parking Lot Laborer Name Role Phone ARLENE RODRÍGUEZ CP Unavailable Allergies, Adverse Reactions, Alerts Substance Reaction Event Type N.K.D.A. Info Not Available Non Drug Allergy Problems Problem Type Condition Code Onset Dates Condition Status Problem Personal history of tobacco use, presenting hazards to health V15.82 Active Problem Chronic airway obstruction, not elsewhere classified 496 Active Problem Family history of diabetes mellitus V18.0 Active Assessment Burning with urination R30.0 Active Assessment Eczema L30.9 Active Medications Medication Code System Code Instructions Start Date End Date Status Dosage Zyrtec Allergy [facility] [address]-83 10 MG Orally Once a day 1 tablet as needed Clobetasol Propionate [facility] [address]-27 0.05 % Externally Twice a day May 13, 2015 1 application to affected area Ranitidine & Diet Manage Prod NDC 0 150 MG Orally once a day 1 tablet Macrobid [facility] [address]-81 100 MG Orally every 12 hrs May 13, 2015Apr 1 capsule with food Symbicort [facility] [address]-98 80-4.5 mcg/actuation May 19, 2014 2 puffs by Inhalation route 2 times per day fluticasone [facility] [address]-47 50 mcg/actuation October 16, 2014 inhale 1 spray in each nostril by INTRANASAL route 2 times per day Procedures Procedure Coding System Code Date Office Visit, Est Pt., Level 4 CPT-4 76226 May 13, 2015 URINALYSIS, AUTO, W/O SCOPE CPT-4 81310 May 13, 2015 Vital Signs Date/Time: May 13, 2015 Temperature 98.4 F Weight 180.8 lbs Height 66 in BMI 29.18 Index Blood Pressure Diastolic 64 mmHg Blood Pressure Systolic 106 mmHg Cardiac Monitoring Heart Rate 72 bpm Results Name Result Date Reference Range Unit Abnormality Flag UA LONG DIP (IN HOUSE) Summary Purpose eClinicalWorks Submission
--- OUTSIDE RECORDS SUMMARY | 2017-01-11 14:36 | XMS REPORT ---
Author Author BILLY KEITH [facility] eClinicalWorks Address Unknown Phone Unavailable Care Team Providers Care Food Service Kitchen Supervisor Name Role Phone BILLY KEITH CP Unavailable [...] Instructions Start Date End Date Status Dosage Clonidine HCl [facility] [address]-41 0.2 MG Orally twice a day Apr 12, 2016 1 tablet Loratadine [facility] [address]-37 10 mg May 19, 2014 take 1 tablet (10 mg) by oral route once daily Zyrtec Allergy [facility] [address]-48 10 MG Orally Once a day 1 tablet as needed Cetirizine HCl [facility] 16571623340 10 MG TAKE ONE TABLET BY MOUTH ONCE DAILY fluticasone [facility] [address]-13 50 mcg/actuation October 16, 2014 inhale 1 spray in each nostril by INTRANASAL route 2 times per day Naproxen [facility] [address]-34 500 mg Aug 13, 2014 take 1 tablet by Oral route 2 times per day with food for pain take with food. Symbicort [facility] [address]-17 80-4.5 mcg/actuation May 19, 2014 2 puffs by Inhalation route 2 times per day Ranitidine & Diet Manage Prod NDC 0 150 MG Orally once a day 1 tablet Methotrexate Sodium NDC 0 2.5 MG Orally once weekly Apr 18, 2016 1 tablet Vicoprofen [facility] [address]-10 7.5-200 MG Orally every 6 hrs November 24, 2015 1 tablet as needed Albuterol Sulfate HFA [facility] [address]-50 108 (90 Base) MCG/ACT Inhalation every 4 hrs 2 puffs as needed Combivent Respimat [facility] [address]-18 20-100 MCG/ACT Inhalation Four times a day 1 puff Tylenol Cold [facility] [address]-79 30-2-15-325 MG Orally every 6 hrs 2 tablets as needed Clobetasol Propionate [facility] [address]-34 0.05 % Externally Twice a day May 13, 2015 1 application to affected area Omeprazole [facility] [address]-[address] Aponte September 23, 2015 1 tablet Results No Known Results Summary Purpose eClinicalWorks Submission
--- OUTSIDE RECORDS SUMMARY | 2017-01-11 14:36 | XMS REPORT ---
Author Author LENY ASENCIO [facility] eClinicalWorks Address Unknown Phone Unavailable Care Team Providers Care Tabber Name Role Phone LENY ASENCIO CP Unavailable Allergies No Known Allergies Problems Problem Type Condition Code Onset Dates Condition Status Assessment Anxiety, generalized F41.1 Active Problem Mild episode of recurrent major depressive disorder F33.0 Active Problem Eczema, unspecified type L30.9 Active Problem Anxiety, generalized F41.1 Active Problem Chronic airway obstruction, not elsewhere classified 496 Active Assessment Mild episode of recurrent major depressive disorder F33.0 Active Problem Family history of diabetes mellitus V18.0 Active Problem Personal history of tobacco use, presenting hazards to health V15.82 Active Medications No Known Medications Procedures Procedure Coding System Code Date Psychotherapy, patient &/family, 30 minutes, established patient CPT-4 88134 May 16, 2016 Results No Known Results Summary Purpose [employer] Submission
--- OUTSIDE RECORDS SUMMARY | 2017-01-11 14:36 | XMS REPORT ---
Author Author LENY ASENCIO [facility] eClinicalWorks Address Unknown Phone Unavailable Care Team Providers Care Plastic Bubble Packer Name Role Phone LENY ASENCIO CP Unavailable Allergies No Known Allergies Problems Problem Type Condition Code Onset Dates Condition Status Assessment Mild episode of recurrent major depressive disorder F33.0 Active Problem Mild episode of recurrent major depressive disorder F33.0 Active Problem Eczema, unspecified type L30.9 Active Problem Anxiety, generalized F41.1 Active Problem Chronic airway obstruction, not elsewhere classified 496 Active Assessment Anxiety, generalized F41.1 Active Problem Family history of diabetes mellitus V18.0 Active Problem Personal history of tobacco use, presenting hazards to health V15.82 Active Medications No Known Medications Procedures Procedure Coding System Code Date Psychotherapy, patient &/family, 30 minutes, established patient CPT-4 74558 Apr 26, 2016 Results No Known Results Summary Purpose [employer] Submission
== END 2017-01-09 14:15 | disposition home or self-care (01) ==
LOC: ENDO 09:26
PROVIDERS: ATTEND Surgery
DX: R19.4 Change in bowel habit (principal); K29.80 Duodenitis without bleeding; K29.70 Gastritis, unspecified, without bleeding; K21.9 Gastro-esophageal reflux disease without esophagitis; K44.9 Diaphragmatic hernia without obstruction or gangrene; J44.9 Chronic obstructive pulmonary disease, unspecified; F17.210 Nicotine dependence, cigarettes, uncomplicated

== ENCOUNTER → 2017-01-29 | Outpatient (CLI) | payer OTHER ==
[~2017-01-29] MED LIST changes: +PANT40TA2 PO
--- NOTE | 2017-01-29 20:29 | Diagnostic Imaging Report ---
PROCEDURE: CT urinary tract, rule out kidney stone. TECHNIQUE: Multiple contiguous axial images were obtained through the abdomen and pelvis without the use of intravenous contrast. INDICATION: Left flank pain. FINDINGS: The heart size is normal. The lung bases are clear. The liver is normal in size without focal lesions. The gallbladder is surgically absent. The spleen is unremarkable. The pancreas and adrenal glands are unremarkable. The kidneys are unremarkable. There is no evidence of obstructive uropathy. The abdominal aorta is nonaneurysmal. The bowel gas pattern is nonspecific. There is no free air. There is no ascites. There are no focal inflammatory changes. The appendix is unremarkable. There is no pelvic mass, adenopathy or free fluid. The bladder is unremarkable. The uterus appears to be surgically absent. There are minimal degenerative changes in the spine. IMPRESSION: Previous cholecystectomy and hysterectomy. No evidence of nephrolithiasis or obstructive uropathy. No evidence of appendicitis. Dictated by: Dictated on workstation # [id number]
== END ==
LOC: RAD 19:39
PROVIDERS: ATTEND Nurse Practitioner Family
DX: R10.32 Left lower quadrant pain; Z90.49 Acquired absence of other specified parts of digestive tract; Z90.710 Acquired absence of both cervix and uterus
CPT/HCPCS: 74176

== ENCOUNTER → 2022-01-31 | Outpatient (CLI) | payer OTHER ==
[~2022-01-31] MED LIST changes: +CLN.2T PO; -CLON0.2T PO; -RANI-515 PO; +RANI-609 PO
--- NOTE | 2022-01-31 10:11 | Diagnostic Imaging Report ---
Indication: Right wrist pain. Time of Exam: 9:54 AM. 3 views right wrist were obtained. Distal radius and ulna are intact. Carpus appears intact. No fractures are seen. Visualized metacarpals are unremarkable. IMPRESSION: No acute abnormality is detected. Dictated by: Dictated on workstation # [id number]
== END ==
LOC: ORTHO 09:45
PROVIDERS: ATTEND Orthopaedic Surgery
DX: M25.531 Pain in right wrist (principal)
CPT/HCPCS: 73110; G0463; 99203

== ENCOUNTER 2022-03-08 05:40 | Outpatient (CLI) | payer SELFPAY ==
[~2022-03-08] VITALS: Ht 170.2 cm; Wt 82.6 kg
[2022-03-09] MEDS ORDERED: RT-ALBUINH IH (10:22)
[2022-03-09] MEDS ORDERED: ESOM40CA52 PO (10:22)
[2022-03-09] MEDS ORDERED: ATOR20TA66 PO (10:22)
[2022-03-09] MEDS ORDERED: DICL20GE TP (10:22)
[2022-03-09] MEDS ORDERED: LIDO700A45 TP (10:22)
== END 2022-03-09 10:26 | disposition home or self-care (01) ==
LOC: PREOP 05:40
PROVIDERS: ATTEND Surgery
DX: Z01.818 Encounter for other preprocedural examination (principal); K21.9 Gastro-esophageal reflux disease without esophagitis; Z98.1 Arthrodesis status

== ENCOUNTER 2022-03-21 08:46 | Day surgery (SDC) | payer OTHER ==
[~2022-03-21] VITALS: Ht 182 cm; Wt 82.6 kg
[~2022-03-21 08:46] MED LIST changes: +ATOR20TA66 PO; +DICL20GE TP; +ESOM40CA52 PO; +LIDO700A45 TP; +RT-ALBUINH IH
[2022-03-21] MEDS ORDERED: LACTATED RINGERS 1,000 ML IV STA (08:53)
[2022-03-21] MEDS ORDERED: HURRICAINE EXT TUBE (BENZOCAINE) XX PRN (09:00)
[2022-03-21 09:10] VITALS: BP 106/80
--- NOTE | 2022-03-21 09:32 | Progress Note-Pre Operative ---
Pre-Operative Progress Note Date of Available H&P: Feb 20, 2022 Date H&P Reviewed: Mar 21, 2022 Time H&P Reviewed: 09:32 History & Physical: H&P Reviewed, Patient Examed, No changes noted Pre-Operative Diagnosis: gerd, altered bowel function LON GARCIA DO Mar 21, 2022 09:32
[2022-03-21] MEDS ORDERED: MIDAZOLAM 2 MG/2 ML (VERSED) VIAL ONE (10:06)
[2022-03-21] MEDS ORDERED: PROPOFOL INJECTION 50 ML IV ONE (10:06)
[2022-03-21 10:40] VITALS: BP 164/80
--- NOTE | 2022-03-21 10:41 | Progress Note-Post Operative ---
Post-Operative Progess Note Surgeon (s)/Mold Puller (s) Surgeon LON GARCIA DO Mold Puller: na Pre-Operative Diagnosis gerd, altered bowel function Post-Operative Diagnosis gastritis, small h/h, colon polpys Procedure & Operative Findings Date of Procedure 03/21/22 Procedure Performed/Findings egd c biopsies, colonoscopy c hot bx polypectomy x2 Anesthesia Type per field care advocate Estimated Blood Loss Estimated blood loss (mL): scant Specimens/Packing Specimens Removed antrum, ge, colon polyps LON GARCIA DO Mar 21, 2022 10:41
--- NOTE | 2022-03-21 10:43 | Discharge Inst-Simple/Standard ---
Discharge Inst-Standard Patient Instructions/Follow Up Plan of Care/Instructions/FU: 2 weeks [place] Activity as Tolerated: Yes Discharge Diet: Regular Diet LON GARCIA DO Mar 21, 2022 10:43
[2022-03-21 10:45] VITALS: BP 126/65
[2022-03-21 11:05] VITALS: BP 138/75
[2022-03-21 11:21] VITALS: BP 138/75
--- NOTE | 2022-03-21 14:37 | Anesthesia-General Post-Op ---
MAC Patient Condition Mental Status/LOC: Same as Preop Cardiovascular: Satisfactory Nausea/Vomiting: Absent Respiratory: Satisfactory Pain: Controlled Complications: Absent Post Op Complications Complications None Follow Up Care/Instructions Patient Instructions None needed. Anesthesiology Discharge Order Discharge Order Patient is doing well, no complaints, stable vital signs, no apparent adverse anesthesia problems. No complications reported per nursing. MELISA MITCHELL CRNA Mar 21, 2022 14:37
--- NOTE | 2022-03-21 18:05 | OPERATIVE REPORT ---
DATE OF SERVICE: 03/21/2022 PREOPERATIVE DIAGNOSES: Gastroesophageal reflux disease and altered bowel dysfunction. POSTOPERATIVE DIAGNOSES: Gastritis, small hiatal hernia, and colon polyps. PROCEDURES PERFORMED: EGD with biopsies, colonoscopy with hot biopsy polypectomy x2. SURGEON: Lon Hubbard DO. ANESTHESIA: Per STATIONARY ENGINEER. ESTIMATED BLOOD LOSS: Scant. COMPLICATIONS: None. INDICATIONS FOR PROCEDURE: The patient is a 38-year-old female with GERD and altered bowel function. She understands risks and benefits of the procedure and wishes to proceed. Consent was signed in the chart. DESCRIPTION OF PROCEDURE: The patient was taken to the endoscopy suite and placed in the left lateral recumbent position. Timeout was performed. Scope was inserted in the mouth, down the esophagus, stomach and into the duodenum without difficulty. No polyps, masses or ulcerations within the duodenum. Scope was slowly retracted back into the stomach, where it was further insufflated. Slight erythematous change was present. A biopsy of the antrum was obtained. Scope was retroflexed noting a small hiatal hernia, no other pathology. Scope was returned to its normal position, slowly withdrawn to distal esophagus. Biopsy of the GE junction was obtained. Scope was slowly retracted back until completely removed. Digital rectal exam was performed. No palpable polyps, masses or ulcerations. Scope was inserted in the rectum and advanced all the way to the cecum with minimal difficulty. Prep was adequate with irrigation and suction. Scope was then slowly retracted back. No polyps, masses or ulcerations within the cecum. In the ascending colon, a small polyp was present, which hot biopsy polypectomy was performed. Scope was then continuously and slowly retracted back in the transverse colon, where another polyp was present, which hot biopsy polypectomy was performed. Scope was then continuously and slowly retracted back. No polyps, masses or ulcerations within the remainder of the transverse, descending and sigmoid colon. Once in the rectum, scope was retroflexed noting no other pathology. Scope was returned to its normal position, slowly withdrawn until completely removed. The patient tolerated the procedure well without any complications, taken to recovery room in stable condition. RECOMMENDATIONS: The patient will await biopsy results. We will continue on current medications. We will need repeat colonoscopy in five years. Any issues before that be seen at that time. The patient will follow up in two weeks to discuss pathology results and modify plan. Job ID: [id number] DocumentID: [id number] Dictated Date: 03/21/2022 10:46:32 Selling Specialist Date: 03/21/2022 18:05:02 Dictated By: LON HUBBARD DO
== END 2022-03-21 11:20 | disposition home or self-care (01) ==
LOC: ENDO 08:46
PROVIDERS: ATTEND Surgery
DX: D12.2 Benign neoplasm of ascending colon (principal); D12.3 Benign neoplasm of transverse colon; K29.70 Gastritis, unspecified, without bleeding; K44.9 Diaphragmatic hernia without obstruction or gangrene; K21.00 Gastro-esophageal reflux disease with esophagitis, without bleeding; F17.210 Nicotine dependence, cigarettes, uncomplicated; Z28.310 Unvaccinated for COVID-19; Z88.6 Allergy status to analgesic agent

== ENCOUNTER → 2022-05-02 | Outpatient (CLI) | payer OTHER ==
[~2022-05-02] MED LIST changes: +LACT1CAP62 PO
== END ==
LOC: ORTHO 09:50
PROVIDERS: ATTEND Orthopaedic Surgery
DX: G56.03 Carpal tunnel syndrome, bilateral upper limbs (principal); M67.431 Ganglion, right wrist
CPT/HCPCS: 99213

== ENCOUNTER 2022-05-04 05:33 | Outpatient (CLI) | payer SELFPAY ==
[~2022-05-04] VITALS: Ht 170.2 cm; Wt 81.8 kg
[~2022-05-04 05:33] MED LIST changes: -LACT1CAP62 PO
[2022-05-04] MEDS ORDERED: LACT1CAP62 PO (16:19)
== END 2022-05-10 15:38 | disposition home or self-care (01) ==
LOC: PREOP 05:33
PROVIDERS: ATTEND Orthopaedic Surgery
DX: Z01.818 Encounter for other preprocedural examination (principal)

== ENCOUNTER 2022-05-12 06:43 | Day surgery (SDC) | payer OTHER ==
[~2022-05-12] VITALS: Ht 170.2 cm; Wt 81.8 kg
[2022-05-12] VITALS (9 sets, daily range): BP systolic 123–149; BP diastolic 75–97
[~2022-05-12 06:43] MED LIST changes: +LACT1CAP62 PO
[2022-05-12] MEDS ORDERED: ceFAZolin INJECTION 2,000 MG in NS (IVPB) 50 ML IV ONE (06:45)
[2022-05-12] MEDS ORDERED: LACTATED RINGERS 1,000 ML IV PRN (07:00)
[2022-05-12] MEDS ORDERED: LIDOCAINE PF 2% 5 ML (XYLOCAINE) VIAL ONE (07:12)
[2022-05-12] MEDS ORDERED: proPOfol 200 MG/20 ML (DIPRIVAN) VIAL IV ONE (07:12)
[2022-05-12] MEDS ORDERED: MIDAZOLAM 2 MG/2 ML (VERSED) VIAL ONE (07:13)
[2022-05-12] MEDS ORDERED: fentaNYL INJ 100 MCG/2 ML AMP ONE (07:13)
[2022-05-12] MEDS ORDERED: BUPIVACAINE 0.5% 30 ML (SENSORCAINE) VIAL ONE (07:25)
[2022-05-12] MEDS ORDERED: NEO/POLY/BAC (NEOSPORIN) OINT 15 GM TUBE ONE (07:25)
--- NOTE | 2022-05-12 07:52 | Progress Note-Pre Operative ---
Pre-Operative Progress Note Date of Available H&P: May 02, 2022 Date H&P Reviewed: May 12, 2022 Time H&P Reviewed: 07:40 History & Physical: H&P Reviewed, Patient Examed, No changes noted Pre-Operative Diagnosis: Right Carpal Tunnel Syndrome/Right Wrist Ganglion Cyst VY NEWBERRY MD May 12, 2022 07:52
[2022-05-12] MEDS ORDERED: SEVOFLURANE (ULTANE) 15 ML INHAL SOLN ONE (08:33)
--- NOTE | 2022-05-12 09:03 | Operative Report - Ortho ---
Operative Report Surgeon (s)/Hand Bookbinder (s) Surgeon VY NEWBERRY MD Hand Bookbinder n/a Pre-Operative Diagnosis Right Carpal Tunnel Syndrome/Right Wrist Ganglion Cyst Post-Operative Diagnosis same Operative Report Date of Procedure: May 12, 2022 Name of Procedure Performed: Right Carpal Tunnel Release and Right Wrist Ganglion Cyst Excision Description & Findings After obtaining informed consent and marking the patient in the preoperative holding area, the patient was administered IV antibiotics. The patient was taken to the operating room and general anesthesia was induced. The right upper extremity was prepped and draped in the usual sterile fashion. Surgical timeout was taken. Incision was made just ulnar to the thenar crease. Blunt dissection was carried down to the longitudinal fibers of the palmar fascia; these were divided in line revealing the transverse carpal ligament. Beginning distally and working proximally, carpal tunnel release was performed. Nerve protector was placed and release was completed back to the level of the forearm fascia. Probe was inserted and release was palpably complete. Attention was turned to the ganglion cyst, incision was extended diagonally across the wrist crease. Ganglion was identified and circumferential dissection was performed protecting the radial artery. The ganglion was removed and sent for pathology. Wound was injected subcutaneously with local anesthetic. Tourniquet was dropped and hemostasis was achieved. Wound was closed with 3-0 vicryl and 4-0 nylon. Wound was dressed with xeroform, 4x4s, hanh, ABD for soft splint, cast padding, and ADEN wrap. Patient tolerated the procedure well and was stable to the recovery room. Anesthesia Type General LMA Estimated Blood Loss minimal Specimen(s) collected/removed Ganglion sent for pathology. VY NEWBERRY MD May 12, 2022 09:03
[2022-05-12] MEDS ORDERED: ACHD5005 PO (09:05)
--- NOTE | 2022-05-12 09:11 | Anesthesia-General Post-Op ---
General Patient Condition Mental Status/LOC: Same as Preop Cardiovascular: Satisfactory Nausea/Vomiting: Absent Respiratory: Satisfactory Pain: Controlled Complications: Absent Post Op Complications Complications None Follow Up Care/Instructions Patient Instructions None needed. Anesthesia/Patient Condition Patient Condition Patient is doing well, no complaints, stable vital signs, no apparent adverse anesthesia problems. No complications reported per nursing. JENNIFER ALBERTS CRNA May 12, 2022 09:11
[2022-05-12] MEDS ORDERED: ONDANSETRON 4 MG/2 ML (SDV) Z0FRAN IVP PRN (09:15)
[2022-05-12] MEDS ORDERED: HYDROmorphone 2 MG/ML VIAL (DILAUDID) IV ONE (09:15)
[2022-05-12] MEDS ORDERED: PROMETHAZINE INJ 25 MG/ML (PHENERGAN) AMP IVP ONE (09:15)
[2022-05-12] MEDS ORDERED: morphine INJ 10 MG/ML 1ML (SYR OR VIAL) IVP ONE (09:15)
[2022-05-12] MEDS ORDERED: MEPERIDINE (DEMEROL) INJ 50 MG/ML IVP ONE (09:15)
== END 2022-05-12 10:45 | disposition home or self-care (01) ==
LOC: SDC 06:43
PROVIDERS: ATTEND Orthopaedic Surgery
DX: G56.03 Carpal tunnel syndrome, bilateral upper limbs (principal); M67.431 Ganglion, right wrist; F17.210 Nicotine dependence, cigarettes, uncomplicated; K21.9 Gastro-esophageal reflux disease without esophagitis; Z79.899 Other long term (current) drug therapy; Z28.310 Unvaccinated for COVID-19
CPT/HCPCS: 87081

== ENCOUNTER → 2022-05-25 | Outpatient (CLI) | payer OTHER ==
[~2022-05-25] MED LIST changes: +ACHD5005 PO; +ALBU8.5H6 IH; -RT-ALBUINH IH
== END ==
LOC: ORTHO 09:33
PROVIDERS: ATTEND Orthopaedic Surgery
DX: Z47.89 Encounter for other orthopedic aftercare (principal); K21.9 Gastro-esophageal reflux disease without esophagitis; E78.00 Pure hypercholesterolemia, unspecified

== ENCOUNTER → 2022-06-27 | Outpatient (CLI) | payer OTHER | LOC: ORTHO 09:20 | PROVIDERS: ATTEND Orthopaedic Surgery | DX: Z47.89 Encounter for other orthopedic aftercare (principal); E78.00 Pure hypercholesterolemia, unspecified; K21.9 Gastro-esophageal reflux disease without esophagitis ==